=== PATIENT | female | born 1940 | race Caucasian/White ===

== ENCOUNTER → 2021-01-20 | Outpatient (CLI) | payer MEDICARE, BC ==
[~2021-01-20] MED LIST: SYNTHROID50 MCG PO
== END ==
LOC: EXRD 13:32
DX: M81.0 Age-related osteoporosis without current pathological fracture (principal)
CPT/HCPCS: 77080

== ENCOUNTER → 2021-05-10 | Outpatient (CLI) | payer MEDICARE, BC ==
[~2021-05-10] MED LIST changes: +CALCIUM PO; +FISH OIL 1,0001 EAC1 PO; +LIPITOR TAB 1010 MG PO; +MELOXICAM15 MG PO; +MULTI FOR HER1 EACH PO; +VITAMIN D PO
[2021-05-10 09:41] LABS: HEMOGLOBIN 11.5 gm/dl (12.3-15.3); RED BLOOD COUNT 3.4 M/UL (4.00-5.10); WHITE BLOOD COUNT 3.7 K/UL (4.5-11.0)
== END ==
LOC: EDSTATUS 08:30 → OPSV2 08:30
PROVIDERS: Orthopaedic Surgery
DX: Z01.818 Encounter for other preprocedural examination (principal); J43.9 Emphysema, unspecified; R91.8 Other nonspecific abnormal finding of lung field; M53.3 Sacrococcygeal disorders, not elsewhere classified
CPT/HCPCS: 71046; 80048; 85025; 93005

== ENCOUNTER → 2021-05-16 | Day surgery (SDC) | payer MEDICARE, BC ==
[~2021-05-16] MED LIST changes: +HYDROCODON-ACE1 EAC2 PO
== END | disposition home or self-care (01) ==
LOC: OR 05:12
DX: M53.3 Sacrococcygeal disorders, not elsewhere classified (principal); G89.29 Other chronic pain; E78.5 Hyperlipidemia, unspecified; Z96.651 Presence of right artificial knee joint; Z90.49 Acquired absence of other specified parts of digestive tract; Z20.822 Contact with and (suspected) exposure to COVID-19; J43.9 Emphysema, unspecified; M81.0 Age-related osteoporosis without current pathological fracture; E03.9 Hypothyroidism, unspecified; M19.90 Unspecified osteoarthritis, unspecified site
CPT/HCPCS: 36415; 72202; 76000; 84132; C1776; J0171; J0690; J0735; J1100; J1885; J2001; J2274; J2370; J2405; J2704; J2710; J2795; J3010; J7050; J7120; U0002